=== PATIENT | female | born 1935 | race Caucasian/White ===

== ENCOUNTER 2020-09-26 12:28 | Day surgery (SDCO) | payer MEDICARE, OTHER ==
[~2020-09-26 12:28] MED LIST: ARED EYE VITAMIN PO; PEPCID40 MG PO; TRAZODONE 50MG50 MG PO; ULTRAM50 MG PO; VITAMIN D PO
[2020-09-26 15:27] LABS: ALBUMIN 3.1 g/dL (3.4-5.0); BILIRUBIN - TOTAL 0.8 mg/dL (0.2-1.0); BUN/CREAT RATIO (CALC) 27.1 RATIO; CREATININE 0.59 mg/dL (0.51-0.95); GLOBULIN (CALCULATION) 4.1 g/dL; POTASSIUM 3.8 mmol/L (3.5-5.1); TOTAL PROTEIN 7.2 g/dL (6.4-8.2)
[2020-09-26 15:29] LABS: BASOPHIL 0.3 % (0-2); EOSINOPHIL 0.2 % (0-7); HCT 48.4 % (37.0-47.0); HGB 16.6 g/dl (12.5-16.0); LYMPHOCYTE 17.5 % (15-48); MCH 30.9 pg (25.0-31.0); MCHC 34.3 g/dL (32.0-36.0); MONOCYTE 6.2 % (0-12); MPV 10.9 fL (6.0-9.5); NEUTROPHIL 75.3 % (41-80); NRBC 0; PLT 384 K/uL (150-400); RBC 5.38 M/uL (4.20-5.40); RDW 12.6 % (11.5-14.0); WBC 12.5 K/uL (4.0-10.5)
[2020-09-26 15:35] LABS: BILIRUBIN NEGATIVE (NEGATIVE); BLOOD 2+ Ery/uL (NEGATIVE); COLOR YELLOW (YELLOW); GLUCOSE (U) 2+ mg/dL (NORMAL); LEUKOCYTES 2+ Leu/uL (NEGATIVE); NITRITE NEGATIVE (NEGATIVE); PROTEIN 2+ mg/dL (NEGATIVE); pH 7.5 (5.0-9.0)
[2020-09-26 15:37] LABS: CLARITY SLIGHTLY HAZY (CLEAR)
[2020-09-26 15:39] LABS: BACTERIA 4+; URINARY WBC TNTC
[2020-09-26 16:14] LABS: PRO-BNP 586 pg/mL (<450)
[2020-09-26 17:01] LABS: LACTIC ACID 1.4 mmol/L (0.4-1.9)
[2020-09-26 17:36] LABS: CORONAVIRUS 2019 SARS-COV-2 NEGATIVE (NEGATIVE); INFLUENZA A NAA NEGATIVE (NEGATIVE)
[2020-09-27 06:17] LABS: BASOPHIL 0.2 % (0-2); EOSINOPHIL 0.1 % (0-7); HCT 45.5 % (37.0-47.0); HGB 15.3 g/dl (12.5-16.0); LYMPHOCYTE 17.5 % (15-48); MCH 30.6 pg (25.0-31.0); MCHC 33.6 g/dL (32.0-36.0); MONOCYTE 8.2 % (0-12); MPV 10.4 fL (6.0-9.5); NEUTROPHIL 73.6 % (41-80); NRBC 0; PLT 340 K/uL (150-400); RDW 12.5 % (11.5-14.0); WBC 12.2 K/uL (4.0-10.5)
[2020-09-27 06:32] LABS: ALBUMIN 2.9 g/dL (3.4-5.0); BILIRUBIN - TOTAL 0.7 mg/dL (0.2-1.0); BUN/CREAT RATIO (CALC) 26.2 RATIO; CREATININE 0.8 mg/dL (0.51-0.95); GLOBULIN (CALCULATION) 3.2 g/dL; POTASSIUM 4.3 mmol/L (3.5-5.1); TOTAL PROTEIN 6.1 g/dL (6.4-8.2)
[2020-09-27 07:04] LABS: CKMB 0.6 ng/mL (0.0-3.6)
[2020-09-27] MEDS ORDERED: LOPRESSOR25 MG PO (14:06)
--- NOTE | 2020-09-27 14:07 | NUR ---
09/27/20 Ms. Aguirre was confused an unable to pariticipate in an assessment. Juliocesar Aguirre, son, provided the following information. Ms. Aguirre lives with Juliocesar Aguirre. She has 24 hour caregiving. They have a lady who stays with Ms. Aguirre when Juliocesar Aguirre is out of the home. [facility] visits the home. Patient has a rw, s. chair, 3in1 and lift chair. Mr. Aguirre would like [facility] at discharge. Affliation is understood. A referral was made to [facility] via [facility]. - Report given to Dr. Garcia and LEONIDAS GallagherU RN.
[2020-09-27] MEDS ORDERED: CEFDINIR300 MG PO (14:08)
[2020-10-19] MEDS ORDERED: ONDANSETRON ODT4 MG PO (16:43)
[2020-10-19] MEDS ORDERED: TOPROL XL 25MG25 MG PO (16:44)
== END 2020-09-27 15:26 | disposition home or self-care (01) ==
LOC: FER 12:28 → FTCU 16:35
PROVIDERS: Emergency Medicine; Nurse Practitioner; ADMIT Internal Medicine
DX: N30.01 Acute cystitis with hematuria (principal); G93.41 Metabolic encephalopathy; R94.31 Abnormal electrocardiogram [ECG] [EKG]; E83.42 Hypomagnesemia; I11.0 Hypertensive heart disease with heart failure; I50.9 Heart failure, unspecified; E11.9 Type 2 diabetes mellitus without complications; F03.90 Unspecified dementia, unspecified severity, without behavioral disturbance, psychotic disturbance, mood disturbance, and anxiety; I08.0 Rheumatic disorders of both mitral and aortic valves; Z79.899 Other long term (current) drug therapy; Z20.822 Contact with and (suspected) exposure to COVID-19
CPT/HCPCS: 36415; 71045; 80053; 80061; 81001; 82553; 83605; 83690; 83735; 83880; 84484; 85025; 93005; 94010; C9113; G0378; J0696; J1650; J2405; J3415; J3475; J7030; U0002

== ENCOUNTER 2020-10-03 08:17 | Inpatient (IN) | payer MEDICARE, OTHER ==
[~2020-10-03] VITALS: Ht 154.9 cm; Wt 66.3 kg
[~2020-10-03 08:17] MED LIST changes: +CEFDINIR300 MG PO; +LOPRESSOR25 MG PO
[2020-10-03 09:19] LABS: BILIRUBIN NEGATIVE (NEGATIVE); BLOOD 1+ Ery/uL (NEGATIVE); CLARITY HAZY (CLEAR); COLOR YELLOW (YELLOW); GLUCOSE (U) 3+ mg/dL (NORMAL); LEUKOCYTES NEGATIVE Leu/uL (NEGATIVE); NITRITE NEGATIVE (NEGATIVE); PROTEIN TRACE (LOW) mg/dL (NEGATIVE); UROBILINOGEN 0.2 mg/dL (0.2-1.0)
[2020-10-03 09:19] LABS: ALBUMIN 3.7 g/dL (3.4-5.0); BILIRUBIN - TOTAL 1.4 mg/dL (0.2-1.0); CREATININE 0.6 mg/dL (0.51-0.95); GLOBULIN (CALCULATION) 3.8 g/dL; MAGNESIUM 1.8 mg/dL (1.8-2.4); POTASSIUM 4.5 mmol/L (3.5-5.1); TOTAL PROTEIN 7.5 g/dL (6.4-8.2)
[2020-10-03 09:23] LABS: BASOPHIL 0.3 % (0-2); EOSINOPHIL 0 % (0-7); HCT 52.3 % (37.0-47.0); HGB 18.1 g/dl (12.5-16.0); LYMPHOCYTE 4.8 % (15-48); MCH 30.7 pg (25.0-31.0); MCHC 34.6 g/dL (32.0-36.0); MCV 88.8 fL (78.0-100.0); MONOCYTE 2.7 % (0-12); MPV 11.2 fL (6.0-9.5); NEUTROPHIL 91.6 % (41-80); NRBC 0; PLT 395 K/uL (150-400); RBC 5.89 M/uL (4.20-5.40); RDW 12.4 % (11.5-14.0); WBC 23.4 K/uL (4.0-10.5)
[2020-10-03 09:26] LABS: PRO-BNP 1748 pg/mL (<450)
[2020-10-03 09:28] LABS: BACTERIA TRACE
[2020-10-03 09:55] LABS: INR 1.15 (0.9-1.2); PTT 29.3 SECONDS (22.2-34.7)
[2020-10-03 10:31] LABS: LACTIC ACID 1.9 mmol/L (0.4-1.9)
[2020-10-03] MEDS ORDERED: QUETIAPINE FUMA25 MG PO (15:55)
[2020-10-04 06:42] LABS: BASOPHIL 0.2 % (0-2); EOSINOPHIL 0.1 % (0-7); HCT 39.4 % (37.0-47.0); HGB 13.2 g/dl (12.5-16.0); LYMPHOCYTE 11.3 % (15-48); MCH 30.6 pg (25.0-31.0); MCHC 33.5 g/dL (32.0-36.0); MCV 91.4 fL (78.0-100.0); MONOCYTE 5.9 % (0-12); MPV 10.6 fL (6.0-9.5); NEUTROPHIL 81.9 % (41-80); NRBC 0; PLT 267 K/uL (150-400); RBC 4.31 M/uL (4.20-5.40); RDW 12.8 % (11.5-14.0); WBC 18.7 K/uL (4.0-10.5)
[2020-10-04 07:09] LABS: BUN/CREAT RATIO (CALC) 32.4 RATIO; CREATININE 0.71 mg/dL (0.51-0.95); MAGNESIUM 1.7 mg/dL (1.8-2.4); POTASSIUM 3.3 mmol/L (3.5-5.1)
--- NOTE | 2020-10-04 14:25 | NUR ---
10/04/20 Ms. Aguirre has a dx of dementia. She lives with her son, Mahendra Aguirre. She has a 24 hour care; a lady stays in the home when Mr. Aguirre is not home. Ms. Aguirre has a rw, s.chair, 3in1, and lift chair. She is followed by [facility] and [facility]. Adriana Davalos, daughter, reports family choice to continue with [facility]. [facility] was notified of admission via [facility].
[2020-10-05 08:30] LABS: BASOPHIL 0.3 % (0-2); EOSINOPHIL 0.6 % (0-7); HCT 36.5 % (37.0-47.0); HGB 12.2 g/dl (12.5-16.0); LYMPHOCYTE 11.7 % (15-48); MCH 30.6 pg (25.0-31.0); MCHC 33.4 g/dL (32.0-36.0); MCV 91.5 fL (78.0-100.0); MONOCYTE 4.5 % (0-12); MPV 10.6 fL (6.0-9.5); NEUTROPHIL 82.3 % (41-80); NRBC 0; PLT 237 K/uL (150-400); RBC 3.99 M/uL (4.20-5.40); RDW 12.7 % (11.5-14.0); WBC 14.2 K/uL (4.0-10.5)
[2020-10-05 08:59] LABS: BUN/CREAT RATIO (CALC) 27.7 RATIO; CREATININE 0.47 mg/dL (0.51-0.95); POTASSIUM 2.7 mmol/L (3.5-5.1)
--- NOTE | 2020-10-05 14:57 | NUR ---
10/05/20 Discharge is anticipated for today. [facility] was notified of pending discharge. Please call [facility] at [phone] if patient is discahrged over the weekend.
[2020-10-05] MEDS ORDERED: PROTONIX 40MG T40 MG PO (16:45)
[2020-10-05] MEDS ORDERED: CARAFATE S500 MG/TSP PO (16:45)
[2020-10-05] MEDS ORDERED: DICLOFENAC POTA50 MG PO (16:52)
[2020-10-19] MEDS ORDERED: ONDANSETRON ODT4 MG PO (16:43)
[2020-10-19] MEDS ORDERED: TOPROL XL 25MG25 MG PO (16:44)
== END 2020-10-05 17:15 | disposition home health service (06) | DRG 368 ==
LOC: FER 08:17 → FTCU 13:51
PROVIDERS: Emergency Medicine; Surgery; ADMIT Internal Medicine
PROC: 0DB58ZX Excision of Esophagus, Via Natural or Artificial Opening Endoscopic, Diagnostic (ICD-10-PCS; principal; 2020-10-05 09:30)
PROC: 0DB78ZX Excision of Stomach, Pylorus, Via Natural or Artificial Opening Endoscopic, Diagnostic (ICD-10-PCS; 2020-10-05 09:30)
DX: K21.01 Gastro-esophageal reflux disease with esophagitis, with bleeding (principal); G93.41 Metabolic encephalopathy; N39.0 Urinary tract infection, site not specified; T39.395A Adverse effect of other nonsteroidal anti-inflammatory drugs [NSAID], initial encounter; E87.6 Hypokalemia; K44.9 Diaphragmatic hernia without obstruction or gangrene; G89.29 Other chronic pain; I10 Essential (primary) hypertension; Z20.822 Contact with and (suspected) exposure to COVID-19; E11.65 Type 2 diabetes mellitus with hyperglycemia; E86.0 Dehydration; L89.152 Pressure ulcer of sacral region, stage 2; I49.3 Ventricular premature depolarization; M54.9 Dorsalgia, unspecified; Z90.710 Acquired absence of both cervix and uterus; Z98.890 Other specified postprocedural states; Z79.899 Other long term (current) drug therapy
CPT/HCPCS: 36415; 71045; 71260; 80048; 80053; 81001; 83036; 83540; 83605; 83690; 83735; 83880; 84132; 84145; 84484; 85025; 85610; 85730; 87040; 87088; 88305; 88341; 88342; 93005; 97162; 97166; 97530-GP; 97535; C9113; J1170; J2405; J2543; J2704; J3475; J3480; J3490; J7030; J7040; J7120; Q9967; U0002